=== PATIENT | male | born 1935 | race Caucasian/White ===

== ENCOUNTER 2020-09-18 06:21 | Outpatient (CLI) | payer MEDICARE, BC ==
[2020-09-18 09:54] LABS: Hemoglobin 14.5 g/dL (14.0-18.0); Mean Corpuscular HGB CONC 33.3 G/DL (32.0-36.0); Mean Corpuscular Hemoglobin 31.3 PG (27.0-33.0); Mean Corpuscular Volume 94.2 fl (80.0-100.0); Mean Platelet Volume 9.5 fl (7.4-10.4); Platelet Count 207 10x3/uL (130-400); Red Blood Cell (RBC) Count 4.63 10x6/uL (4.40-5.80)
[2020-09-18 10:02] LABS: Anion Gap 18 mmol/L (10-20); BUN (Urea Nitrogen) 19 mg/dL (8.4-25.7); Calc. Creatinine Clearance 0 mL/min (70-130); Calcium 9.3 mg/dL (7.8-10.44); Carbon Dioxide 25 mmol/L (23-31); Chloride 99 mmol/L (98-107); Estimated GFR-MDRD 69; Glucose 94 mg/dL (83-110); Potassium 4.8 mmol/L (3.5-5.1); Sodium 137 mmol/L (136-145)
[2020-09-18 23:35] LABS: SARS-CoV-2 MS2 Positive; SARS-CoV-2 N Gene Negative; SARS-CoV-2 S Gene Negative; SARS-CoV-2 by NAA Not Detected (NotDetected); SARS-CoV-2 orf1ab Negative
== END 2020-09-18 06:22 | disposition home or self-care (01) ==
LOC: LABBT 06:21
PROVIDERS: ATTEND Thoracic Surgery (Cardiothoracic Vascular Surgery)
DX: Z01.812 Encounter for preprocedural laboratory examination (principal); Z20.828 Contact with and (suspected) exposure to other viral communicable diseases; I65.22 Occlusion and stenosis of left carotid artery
CPT/HCPCS: 80048; 85027; U0003; 87635

== ENCOUNTER 2020-09-18 09:15 | Inpatient (IN) | payer MEDICARE, BC ==
[2020-09-21] MEDS ORDERED: Fentanyl 100 MCG/2 ML VIAL ONE ×2 (06:35→09:54)
[2020-09-21] MEDS ORDERED: Midazolam HCl 2 mg/2 ml Vial ONE (06:35)
[2020-09-21] MEDS ORDERED: Phenylephrine 10 MG/ML VIAL ONE (06:35)
[2020-09-21] MEDS ORDERED: Protamine Sulfate 50 MG/5 ML VIAL ONE (07:03)
[2020-09-21] MEDS ORDERED: Heparin 5,000 UNITS/ML VIAL ONE (07:03)
[2020-09-21] MEDS ORDERED: Ondansetron HCl/PF 4 MG/2 ML Vial IVP PRN (09:14)
[2020-09-21] MEDS ORDERED: Sodium Chloride 0.9% 1,000 ML IV SCH (09:18)
[2020-09-21] MEDS ORDERED: Nitroglycerin 50 MG/250 ML BOT 250 ML IVPB PRN (09:18)
[2020-09-21] MEDS ORDERED: traMADol HCl 50 MG TAB PO PRN (09:18)
[2020-09-21] MEDS ORDERED: Ondansetron PF 4 MG/2 ML Vial IVP PRN (09:18)
[2020-09-21] MEDS ORDERED: Acetaminophen 325 MG TAB PO PRN (09:18)
[2020-09-21] MEDS ORDERED: Phenylephrine 10 MG/NS 250 ML 250 ML IVPB PRN (09:18)
[2020-09-21] MEDS ORDERED: Ondansetron PF 4 MG/2 ML Vial ONE (10:45)
[2020-09-21] MEDS ORDERED: Ketorolac Tromethamine 30 MG/ML VIAL ONE (10:45)
[2020-09-21] MEDS ORDERED: PHENYLEPHRINE-NS 100 MCG/ML 10 ML SYRINGE ONE (10:45)
[2020-09-21] MEDS ORDERED: Glycopyrrolate 0.2 MG/ML 5 ML SYRINGE ONE (10:45)
[2020-09-21] MEDS ORDERED: Rocuronium Bromide 10 MG/ML (10ML VIAL) ONE (10:45)
[2020-09-21] MEDS ORDERED: Lidocaine 1% PF 5 ML VIAL ONE (10:45)
[2020-09-21] MEDS ORDERED: PROPOFOL 200 MG/20 ML VIAL ONE (10:45)
[2020-09-21] MEDS ORDERED: Dexamethasone 20 MG/5 ML VIAL ONE (10:45)
[2020-09-22 08:32] VITALS: TEMP 97.9
[2020-09-22] MEDS ORDERED: Clopidogrel Bisulfate 75 MG TAB PO SCH (09:00)
[2020-09-22] MEDS ORDERED: Aspirin Chewable 81 MG TAB PO SCH (09:00)
--- NOTE | 2020-09-23 13:23 | OP ---
DATE OF PROCEDURE: 09/21/2020 PREOPERATIVE DIAGNOSIS: Severe left carotid stenosis. PROCEDURE PERFORMED: TCAR using 10 x 4 stent, pre-dilated with a 5.5 stent. 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 CONTRAST: 13 mL. FLUORO: 3.31 minutes. DESCRIPTION OF PROCEDURE: After adequate anesthesia had been obtained, the patient was prepped and draped. Incision was made at just above the clavicle with the carotid artery being slightly medial to the incision. It was controlled with a loop and the patient was heparinized. Dr. Dumas cannulated the right common femoral vein, placed the sheath there. Initial ACT was 230 and an additional 2500 units of heparin was given in addition to the 5000. Needle and wire were then advanced, and catheter was advanced into the common carotid artery, where angiography was obtained. The J-wire was then advanced up to the carotid bulb, following which, the larger sheath was placed. It was then secured to the skin and a clamp was applied. A wire was advanced into the internal carotid artery. Angiography was obtained, following which, a 5.5 x 2 balloon was used to pre-dilate the severe lesion. Following this, the 10 x 4 stent was deployed and repeat angiography in two planes showed good result. After an additional 2 minutes of retrograde flow through the filter, the clamp was removed, sheath was removed, and Prolene suture was secured and re-secured. Good hemostasis was obtained as protamine 25 mg was given. The wound was closed and the sheath was removed from the right groin. Job ID: [id number]
== END 2020-09-22 11:15 | disposition home or self-care (01) | DRG 36 ==
LOC: SURG A 09-21 06:00 → CCU 09-21 10:22
PROVIDERS: ADMIT Thoracic Surgery (Cardiothoracic Vascular Surgery); ATTEND Thoracic Surgery (Cardiothoracic Vascular Surgery)
PROC: 037L3EZ Dilation of Left Internal Carotid Artery with Two Intraluminal Devices, Percutaneous Approach (ICD-10-PCS; principal; 2020-09-21)
DX: I65.22 Occlusion and stenosis of left carotid artery (principal); Z20.828 Contact with and (suspected) exposure to other viral communicable diseases; I10 Essential (primary) hypertension; E78.5 Hyperlipidemia, unspecified; I73.9 Peripheral vascular disease, unspecified; F03.90 Unspecified dementia, unspecified severity, without behavioral disturbance, psychotic disturbance, mood disturbance, and anxiety; F32.9 Major depressive disorder, single episode, unspecified; Z79.82 Long term (current) use of aspirin; Z87.891 Personal history of nicotine dependence; Z79.899 Other long term (current) drug therapy
CPT/HCPCS: 76000; 80048; 85027; 87635; C1725; C1876; C1884; J1100; J1642; J1644; J1885; J2250; J2370; J2405; J2704; J2720; J3010; U0003